=== PATIENT | female | born 1965 | race Caucasian/White ===

== ENCOUNTER 2021-06-27 10:25 | Inpatient (IN) ==
[2021-06-27] MEDS ORDERED: *HR* Buprenorphine HCl 2 MG SUBLINGUAL TABLET SL ONE (11:12)
[2021-06-27] MEDS ORDERED: *HR* LORazepam 1 MG TABLET PO ONE (13:38)
[2021-06-27 15:25] LABS: Adenovirus Not Detected (Not Detect); Bordetella Pertussis Not Detected (Not Detect); Chlamydophila pneumoniae Not Detected (Not Detect); Coronavirus 229E Not Detected (Not Detect); Coronavirus HKU1 Not Detected (Not Detect); Coronavirus NL63 Not Detected (Not Detect); Coronavirus OC43 Not Detected (Not Detect); Human Metapneumovirus Not Detected (Not Detect); Human Rhinovirus/Enterovirus Not Detected (Not Detect); Influenza A Subtype 2009 H1 Not Detected (Not Detect); Influenza B Not Detected (Not Detect); Mycoplasma pneumoniae Not Detected (Not Detect); Parainfluenza Virus 1 Not Detected (Not Detect); Parainfluenza Virus 2 Not Detected (Not Detect); Parainfluenza Virus 3 Not Detected (Not Detect); Parainfluenza Virus 4 Not Detected (Not Detect); Respiratory Syncytial Virus Not Detected (Not Detect); SARS-CoV-2 Not Detected (Not Detect)
[2021-06-27] MEDS ORDERED: Acetaminophen 325 MG TABLET PO PRN (16:33)
[2021-06-27] MEDS ORDERED: haloperidoL 5 MG TABLET PO PRN (16:33)
[2021-06-27] MEDS ORDERED: QUEtiapine Fumarate 25 MG TABLET PO PRN (16:33)
[2021-06-27] MEDS ORDERED: Haloperidol Lactate 5 MG/ML VIAL IM PRN (16:33)
[2021-06-27] MEDS ORDERED: *HR* LORazepam 2 MG/ML VIAL IM PRN (16:33)
[2021-06-27] MEDS ORDERED: *HR* LORazepam 1 MG TABLET PO PRN (16:33)
[2021-06-27] MEDS: Nitrofurantoin (BID) 100 MG CAPSULE PO SCH (20:26)
[2021-06-28] MEDS ORDERED: MOM Conc 10 ML UD.LIQ PO PRN (08:35)
[2021-06-28] MEDS ORDERED: Mag Hydrox/Al Hydrox/Simeth 30 ML UDC PO PRN (08:35)
[2021-06-28] MEDS: (Buprenorphine Hcl/Naloxone Hcl [Suboxone 8 Mg-2 Mg]) SL SCH (09:26)
[2021-06-28] MEDS: Nitrofurantoin (BID) 100 MG CAPSULE PO SCH (11:02)
[2021-06-28] MEDS: ARIPiprazole 5 MG TABLET PO SCH (11:52)
[2021-06-28] MEDS: Mirtazapine 15 MG TABLET PO SCH (20:14)
[2021-06-28] MEDS: hydrOXYzine pamoate 25 MG CAPSULE PO PRN (20:14)
[2021-06-29] MEDS: ARIPiprazole 5 MG TABLET PO SCH (11:16)
[2021-06-29] MEDS: (Buprenorphine Hcl/Naloxone Hcl [Suboxone 8 Mg-2 Mg]) SL SCH (11:16)
[2021-06-29] MEDS: hydrOXYzine pamoate 25 MG CAPSULE PO PRN (20:34)
[2021-06-29] MEDS: Mirtazapine 15 MG TABLET PO SCH (20:34)
[2021-06-30] MEDS: ARIPiprazole 5 MG TABLET PO SCH (09:51)
[2021-06-30] MEDS: (Buprenorphine Hcl/Naloxone Hcl [Suboxone 8 Mg-2 Mg]) SL SCH (10:25)
[2021-06-30] MEDS: Mirtazapine 15 MG TABLET PO SCH (20:24)
[2021-06-30] MEDS: hydrOXYzine pamoate 25 MG CAPSULE PO PRN (20:24)
[2021-07-01] MEDS: ARIPiprazole 10 MG TABLET PO SCH (09:08)
[2021-07-01] MEDS: (Buprenorphine Hcl/Naloxone Hcl [Suboxone 8 Mg-2 Mg]) SL SCH (09:09)
[2021-07-01] MEDS: Mirtazapine 15 MG TABLET PO SCH (20:41)
[2021-07-02] MEDS: *HR* Buprenorphine HCl 8 MG TAB.SUBL SL SCH ×2 (07:48→08:45)
[2021-07-02] MEDS: ARIPiprazole 10 MG TABLET PO SCH (08:45)
[2021-07-02 08:58] VITALS: BP 106/72; PULSE 92; TEMP 97.2; O2SAT 96
[2021-07-02] MEDS: (Buprenorphine Hcl/Naloxone Hcl [Suboxone 8 Mg-2 Mg]) SL SCH (09:07)
== END 2021-07-02 12:10 | disposition home or self-care (01) | DRG 751 ==
LOC: EMEROOARM 10:25 → INTOOBSV 15:49 → 1ANU 15:49 → SUATTDRO 16:29 → 1ANU 17:00
PROVIDERS: ADMIT Psychiatry & Neurology Psychiatry; ATTEND Psychiatry & Neurology Psychiatry